=== PATIENT | male | born 1970 | race Caucasian/White ===

== ENCOUNTER 2023-06-19 06:13 | Emergency (ER) | payer MEDICAID, OTHER ==
[~2023-06-19] VITALS: Ht 170.2 cm; Wt 68.1 kg
[~2023-06-19 06:13] MED LIST: TAMAZEPAM; [UNRECOGNIZED DRUG - OTHER]
[2023-06-19 06:22] VITALS: BP 113/81; O2SAT 99
[2023-06-19] MEDS ORDERED: TEMA15CA PO (06:32)
[2023-06-19 06:48] VITALS: PULSE 88; RESP 20; TEMP 98
== END 2023-06-19 06:49 | disposition home or self-care (01) ==
LOC: ER 06:13
DX: Z76.0 Encounter for issue of repeat prescription (principal)
CPT/HCPCS: 99281

== ENCOUNTER 2023-06-24 06:10 | Emergency (ER) | payer OTHER ==
[~2023-06-24] VITALS: Ht 170.2 cm; Wt 68.0 kg
[~2023-06-24 06:10] MED LIST changes: +TEMA15CA PO
[2023-06-24 06:21] VITALS: PULSE 78
[2023-06-24 06:23] VITALS: BP 108/80; RESP 16; TEMP 98.5; O2SAT 99
[2023-06-24] MEDS ORDERED: TEMA30CA PO (06:27)
== END 2023-06-24 06:44 | disposition home or self-care (01) ==
LOC: ER 06:10
DX: Z76.0 Encounter for issue of repeat prescription (principal)
CPT/HCPCS: 99281

== ENCOUNTER 2023-06-27 14:05 | Emergency (ER) | payer OTHER ==
[~2023-06-27] VITALS: Ht 175.3 cm; Wt 87.0 kg
[~2023-06-27 14:05] MED LIST changes: -TEMA15CA PO; +TEMA30CA PO
[2023-06-27 14:13] VITALS: TEMP 98.6; O2SAT 98
[2023-06-27] MEDS ORDERED: SODIUM CHLORIDE 0.9% 1,000 ML IV ONE (14:30)
[2023-06-27 15:19] LABS: BASOPHILS % 0.1 % (0.0-2.0); EOSINOPHILS % 0.1 % (0.0-5.0); HEMATOCRIT. 42.4 % (42.0-52.0); HEMOGLOBIN. 14.8 g/dL (14.0-18.0); LYMPHOCYTES % 14.3 % (20.0-50.0); MEAN CORPUSCULAR HEMOGLOBIN 31.6 pg (28.0-32.0); MEAN CORPUSCULAR VOLUME 90.3 fL (80.0-94.0); MEAN PLATELET VOLUME 8.4 fl (7.4-10.4); MONOCYTES % 4.2 % (2.0-8.0); NEUTROPHILS % 81.3 % (40.0-76.0); PLATELET 246 x1000/uL (130-400); RED BLOOD CELL COUNT 4.69 mill/uL (4.7-6.1); RED CELL DISTRIBUTION WIDTH 13.3 % (11.6-14.6); WHITE BLOOD COUNT 9.9 x1000/uL (4.5-11.0)
[2023-06-27 15:33] LABS: ACETAMINOPHEN < 2 ug/mL (10-30); ALANINE AMINOTRANSFERASE 29 IU/L (10-49); ALBUMIN 4.4 g/dL (3.2-4.8); ASPARTATE AMINOTRANSFERASE 26 IU/L (<34); BILIRUBIN TOTAL 1.1 mg/dL (0.1-1.0); CALCIUM 9.3 mg/dL (8.7-10.4); CARBON DIOXIDE 25 mEq/L (21-32); CHLORIDE 108 mEq/L (98-107); CREATININE 0.9 mg/dL (0.6-1.3); GLUCOSE 154 mg/dL (70-105); POTASSIUM 3.8 mEq/L (3.5-5.1); PROTEIN TOTAL 7.4 g/dL (6.0-8.3); SODIUM 142 mEq/L (136-145); UREA NITROGEN BLOOD 12 mg/dL (9-23)
[2023-06-27 16:31] LABS: ETHANOL BLOOD < 10 mg/dL (<10); TROPONIN I HIGH SENSITIVITY < 4 ng/L (3.0-53)
[2023-06-27 17:08] VITALS: BP 125/79; PULSE 111; RESP 18
== END 2023-06-27 19:00 | disposition home or self-care (01) ==
LOC: ER 14:05
DX: T65.91XA Toxic effect of unspecified substance, accidental (unintentional), initial encounter (principal); J45.909 Unspecified asthma, uncomplicated; Z86.59 Personal history of other mental and behavioral disorders; Y92.9 Unspecified place or not applicable
CPT/HCPCS: 80053; 80307; 80329; 80320; 85025; 84484; 36415; 71045; 93005; 96360; 99285; J7030; Z7610 ×2; G0480

== ENCOUNTER 2025-02-07 15:33 | Emergency (ER) | payer MEDICAID, OTHER ==
[~2025-02-07] VITALS: Ht 180.3 cm; Wt 86.0 kg
[2025-02-07 15:34] VITALS: O2SAT 98
[2025-02-07 16:48] LABS: BASOPHILS % 0.3 % (0.0-2.0); EOSINOPHILS % 0.7 % (0.0-5.0); HEMATOCRIT. 37.9 % (42.0-52.0); HEMOGLOBIN. 13.7 g/dL (14.0-18.0); LYMPHOCYTES % 13.5 % (20.0-50.0); MEAN PLATELET VOLUME 8.3 fl (7.4-10.4); MONOCYTES % 7.1 % (2.0-8.0); NEUTROPHILS % 78.4 % (40.0-76.0); PLATELET 257 x1000/uL (130-400); RED BLOOD CELL COUNT 4.34 mill/uL (4.7-6.1); RED CELL DISTRIBUTION WIDTH 12.9 % (11.6-14.6)
[2025-02-07 17:00] LABS: CREATININE 1.1 mg/dL (0.6-1.3)
[2025-02-07 17:01] LABS: ETHANOL BLOOD < 10 mg/dL (<10); UREA NITROGEN BLOOD 23 mg/dL (9-23)
[2025-02-08] MEDS: OLANZAPINE 5MG TABLET ODT PO SCH (10:00)
[2025-02-08] MEDS ORDERED: HYDROXYZINE 25MG TABLET PO PRN (10:00)
[2025-02-08 16:52] LABS: CLARITY URINE TURBID (CLEAR); COLOR URINE YELLOW (YELLOW); GLUCOSE URINE NEGATIVE (NEGATIVE); KETONES URINE TRACE (NEGATIVE); LEUKOCYTE ESTERASE URINE 2+ (NEGATIVE); NITRITE URINE NEGATIVE (NEGATIVE); OCCULT BLOOD URINE NEGATIVE (NEGATIVE); PH URINE 7.0 (4.5-8.0); PROTEIN URINE NEGATIVE (NEGATIVE); SPECIFIC GRAVITY URINE 1.020 (1.005-1.030); UROBILINOGEN URINE 1.0 E.U./dL (0.2-1.0)
[2025-02-08 17:08] LABS: RBC URINE 0-2 /hpf (0-2)
[2025-02-08 17:09] LABS: BACTERIA URINE 4+; SQUAMOUS EPITHELIAL CELL URINE RARE /lpf (RARE/1+)
[2025-02-08 17:15] LABS: *AMPHETAMINES SCREEN URINE NEGATIVE (NEGATIVE); *BARBITURATES SCREEN URINE NEGATIVE (NEGATIVE); *BENZODIAZEPINES SCREEN URINE NEGATIVE (NEGATIVE); *COCAINE SCREEN URINE NEGATIVE (NEGATIVE); CANNABINOID URINE SCREEN NEGATIVE (NEGATIVE); ECSTASY MDMA SCREEN URINE NEGATIVE (NEGATIVE); METHADONE URINE SCREEN NEGATIVE (NEGATIVE); OPIATES URINE SCREEN NEGATIVE (NEGATIVE); PHENCYCLIDINE URINE SCREEN NEGATIVE (NEGATIVE)
[2025-02-08] MEDS: TRAZODONE HCL 50MG TABLET PO SCH (21:30)
[2025-02-09] MEDS: DIVALPROEX SODIUM 250MG DR TABLET PO SCH (14:57)
[2025-02-09 16:57] VITALS: BP 105/64; PULSE 76; RESP 17; TEMP 36.7; O2SAT 100
== END 2025-02-09 17:41 | disposition short-term general hospital (02) ==
LOC: ER 15:33
DX: F23 Brief psychotic disorder (principal); J45.909 Unspecified asthma, uncomplicated; Z79.899 Other long term (current) drug therapy; Z20.822 Contact with and (suspected) exposure to COVID-19
CPT/HCPCS: 36415; 80048; 80305; 80307; 80320; 80329; 81003; 85025; 87426; 99285; G0480